=== PATIENT | male | born 1940 | race Caucasian/White ===

== ENCOUNTER → 2019-12-14 | Outpatient (CLI) | payer OTHER ==
[~2019-12-14] MED LIST: ASA81BEC; ATENOLOL 50MG T50 M1 PO; LEVOTHYROXIN0.025 MG PO; ZOCOR40 MG PO
== END ==
LOC: SJCVC 09:57
DX: I25.10 Atherosclerotic heart disease of native coronary artery without angina pectoris (principal); I10 Essential (primary) hypertension; E78.5 Hyperlipidemia, unspecified; I73.9 Peripheral vascular disease, unspecified; Z79.82 Long term (current) use of aspirin; Z79.899 Other long term (current) drug therapy

== ENCOUNTER → 2019-12-30 | Outpatient (CLI) | payer OTHER | LOC: SJCVCIMAG 12:42 | DX: I08.8 Other rheumatic multiple valve diseases (principal); I11.9 Hypertensive heart disease without heart failure; I25.10 Atherosclerotic heart disease of native coronary artery without angina pectoris; E78.5 Hyperlipidemia, unspecified; R53.83 Other fatigue; E66.9 Obesity, unspecified; Z87.891 Personal history of nicotine dependence ==

== ENCOUNTER → 2020-06-27 | Outpatient (CLI) | payer OTHER | LOC: SJCVC 13:55 | PROVIDERS: ATTEND Internal Medicine | DX: I25.10 Atherosclerotic heart disease of native coronary artery without angina pectoris (principal); R00.1 Bradycardia, unspecified; I10 Essential (primary) hypertension; E78.5 Hyperlipidemia, unspecified; I73.9 Peripheral vascular disease, unspecified; I71.4 Abdominal aortic aneurysm, without rupture; Z79.899 Other long term (current) drug therapy ==